=== PATIENT | female | born 1990 | race Two or more races ===

== ENCOUNTER → 2019-09-15 10:34 | Outpatient (CLI) | payer OTHER | END | disposition home or self-care (01) | LOC: LAB 10:34 | DX: G09 Sequelae of inflammatory diseases of central nervous system (principal); Z00.8 Encounter for other general examination ==

== ENCOUNTER 2020-02-09 08:59 | Outpatient (CLI) | payer OTHER | END 2020-02-09 09:06 | disposition home or self-care (01) | LOC: LAB 08:59 | DX: O09.73 Supervision of high risk pregnancy due to social problems, third trimester (principal); Z3A.36 36 weeks gestation of pregnancy; O99.820 Streptococcus B carrier state complicating pregnancy ==

== ENCOUNTER 2020-02-16 11:15 | Inpatient (IN) | payer OTHER ==
[~2020-02-16] VITALS: Ht 157.5 cm; Wt 90.7 kg
[2020-03-07] MEDS ORDERED: PRENATAL 19 TA1 EACH PO (16:37)
== END 2020-03-10 14:21 | disposition home or self-care (01) | DRG 788 ==
LOC: O/R 03-07 14:26 → LDR 03-07 14:26 → SURG-SUITE 03-07 14:26 → LDR 03-07 20:30 → OB/GYN 03-08 11:15 → O/R 03-08 14:26 → OB/GYN 03-08 18:30 → SURG-SUITE 03-08 20:13
PROVIDERS: ADMIT Obstetrics & Gynecology Maternal & Fetal Medicine
PROC: 10907ZC Drainage of Amniotic Fluid, Therapeutic from Products of Conception, Via Natural or Artificial Opening (ICD-10-PCS; 2020-03-07)
PROC: 3E0P7VZ Introduction of Hormone into Female Reproductive, Via Natural or Artificial Opening (ICD-10-PCS; 2020-03-07)
PROC: 3E033VJ Introduction of Other Hormone into Peripheral Vein, Percutaneous Approach (ICD-10-PCS; 2020-03-07)
PROC: 4A1HXCZ Monitoring of Products of Conception, Cardiac Rate, External Approach (ICD-10-PCS; 2020-03-07)
PROC: 10D00Z1 Extraction of Products of Conception, Low, Open Approach (ICD-10-PCS; principal; 2020-03-08 12:00)
DX: O61.0 Failed medical induction of labor (principal); Z3A.40 40 weeks gestation of pregnancy; Z37.0 Single live birth

== ENCOUNTER 2020-03-01 07:47 | Outpatient (CLI) | payer OTHER | END 2020-03-01 08:30 | disposition home or self-care (01) | LOC: NST 07:47 | DX: Z34.83 Encounter for supervision of other normal pregnancy, third trimester (principal) ==